=== PATIENT | male | born 1975 | race Caucasian/White ===

== ENCOUNTER 2019-01-24 04:43 | Emergency (ER) | payer OTHER ==
[~2019-01-24] VITALS: Ht 177.8 cm; Wt 88.5 kg
--- OUTSIDE RECORDS SUMMARY | 2019-01-24 04:52 | XMS REPORT ---
Author Author NHUNG BRICENO Organization [facility] Address [address] [place] [address] Care Team Providers Care Ordnance Technician Name Role Phone NHUNG BRICENO Unavailable PROBLEMS Type Condition ICD9-CM Code [id number] Code Onset Dates Condition Status SNOMED Code Problem Paresthesia of hand, bilateral R20.2 Active 795605201 Problem Paresthesia of both hands R20.2 Active 062007806 Problem Paresthesia of skin R20.2 Active 73713244 ALLERGIES No Information ENCOUNTERS Encounter Location Date Diagnosis [facility] [id number] [place] [phone] May, [facility] [id number] [place] [phone] Apr, [facility] [id number] [place] [phone] Apr, Pain in left wrist M25.532 ; Pain in right wrist M25.531 ; Pain in left elbow M25.522 ; Pain in right elbow M25.521 and Paresthesia of hand, bilateral R20.2 [facility] [id number] [place] [phone] Apr, Paresthesia of both hands R20.2 [facility] [id number] [place] [phone] Mar, Paresthesia of skin R20.2 and Anesthesia of skin R20.0 IMMUNIZATIONS No Known Immunizations SOCIAL HISTORY Never Assessed REASON FOR VISIT Requests return call PLAN OF CARE VITAL SIGNS MEDICATIONS Unknown Medications RESULTS No Results PROCEDURES No Known procedures INSTRUCTIONS MEDICATIONS ADMINISTERED No Known Medications MEDICAL (GENERAL) HISTORY Type Description Date Medical History HTN Medical History Cholesterol Surgical History lymp node biopsy in neck...benign...cat scratch fever 1998
--- OUTSIDE RECORDS SUMMARY | 2019-01-24 04:52 | XMS REPORT ---
Author Author JUAN HORVATH Organization [facility] Address [address] [place] [address] Care Team Providers Care Ballet [employer] Member Name Role Phone JUAN HORVATH Unavailable PROBLEMS Type Condition ICD9-CM Code WHS44-VJ Code Onset Dates Condition Status SNOMED Code Problem Paresthesia of hand, bilateral R20.2 Active 940190534 Problem Paresthesia of both hands R20.2 Active 880745099 Problem Paresthesia of skin R20.2 Active 94953616 ALLERGIES Substance Reaction Event Type Date Status Codeine Sulfate vomiting Drug Allergy Apr, Active ENCOUNTERS Encounter Location Date Diagnosis [facility] [address] [phone] May, [facility] [address] [phone] Apr, [facility] [address] [phone] Apr, Pain in left wrist M25.532 ; Pain in right wrist M25.531 ; Pain in left elbow M25.522 ; Pain in right elbow M25.521 and Paresthesia of hand, bilateral R20.2 [facility] [address] [phone] Apr, Paresthesia of both hands R20.2 [facility] [address] [address] Mar, Paresthesia of skin R20.2 and Anesthesia of skin R20.0 IMMUNIZATIONS No Known Immunizations SOCIAL HISTORY Never Assessed REASON FOR VISIT Establish Care-twooden RMA, pt. states that both of his arms are going numb sta beckie at the tip of his fingers anf radiates upwards. stated two weeks ago PLAN OF CARE Activity Details Follow Up prn Reason: VITAL SIGNS Height 70 in 2018-04-18 Weight 175.4 lbs 2018-04-18 Temperature 97.1 degrees Fahrenheit 2018-04-18 Heart Rate 70 bpm 2018-04-18 Respiratory Rate 18 2018-04-18 Oximetry on room air:94 % 2018-04-18 BMI 25.16 kg/m2 2018-04-18 Blood pressure systolic 118 mmHg 2018-04-18 Blood pressure diastolic 70 mmHg 2018-04-18 MEDICATIONS Medication Instructions Dosage Frequency Start Date End Date Duration Status Atorvastatin Calcium 10 MG Orally Once a day 1 tablet 24h Active Amlodipine Besylate 10 MG Orally Once a day 1 tablet 24h Active Fenofibrate 50 MG Orally Once a day 1 capsule with food 24h Active RESULTS No Results PROCEDURES No Known procedures INSTRUCTIONS MEDICATIONS ADMINISTERED No Known Medications MEDICAL (GENERAL) HISTORY Type Description Date Medical History HTN Medical History Cholesterol Surgical History lymp node biopsy in neck...benign...cat scratch fever 1998
--- OUTSIDE RECORDS SUMMARY | 2019-01-24 04:52 | XMS REPORT ---
Author Author HEATHER BAKER [facility] Address [address] [place] [address] Care Team Providers Care Foundry Tender Name Role Phone HEATHER BAKER Unavailable PROBLEMS Type Condition ICD9-CM Code OZJ16-GF Code Onset Dates Condition Status SNOMED Code Problem Paresthesia of hand, bilateral R20.2 Active 508361587 Problem Paresthesia of both hands R20.2 Active 645368497 Problem Paresthesia of skin R20.2 Active 74676326 ALLERGIES Substance Reaction Event Type Date Status Codeine Sulfate vomiting Drug Allergy Mar, Active ENCOUNTERS Encounter Location Date Diagnosis [facility] [address] [phone] May, [facility] [id number] [place] [phone] Apr, [facility] [address] [address] 19 Apr, 2018 Pain in left wrist M25.532 ; Pain in right wrist M25.531 ; Pain in left elbow M25.522 ; Pain in right elbow M25.521 and Paresthesia of hand, bilateral R20.2 [facility] [id number] [place] [phone] Apr, Paresthesia of both hands R20.2 [facility] [id number] [place] [phone] Mar, Paresthesia of skin R20.2 and Anesthesia of skin R20.0 IMMUNIZATIONS No Known Immunizations SOCIAL HISTORY Never Assessed REASON FOR VISIT numbness in hands and arms bilaterally. usually happens at noc. denies any injur y to them. been going on for 3 weeks now. lo PLAN OF CARE Activity Details Follow Up 04/11 w/ Torey Baker Reason:hand numbness and tingling VITAL SIGNS Height 70 in 2018-04-07 Weight 178.0 lbs 2018-04-07 Temperature 98.2 degrees Fahrenheit 2018-04-07 Heart Rate 72 bpm 2018-04-07 Respiratory Rate 20 2018-04-07 BMI 25.54 kg/m2 2018-04-07 Blood pressure systolic 118 mmHg 2018-04-07 Blood pressure diastolic 70 mmHg 2018-04-07 MEDICATIONS Medication Instructions Dosage Frequency Start Date End Date Duration Status Amlodipine Besylate 10 MG Orally Once a day 1 tablet 24h Active Atorvastatin Calcium 10 MG Orally Once a [...]
--- NOTE | 2019-01-24 05:43 | ED Upper Extremity ---
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 Nursing Sepsis Screen: No Definite Risk Source: patient (AZALIA BRUNNER ) History of Present Illness Date Seen by Provider: Jan 24, 2019 Time Seen by Provider: 05:33 Initial Comments PT ARRIVES VIA POV FROM HOME STATES HE INJURED HIS LEFT THUMB TODAY AROUND 0200 STATES HE GOT HOME FROM WORK AT 0130, AND SMASHED HIS LEFT THUMB BETWEEN DOOR JAMB AND A LARGE BOX, HAS A LACERATION TO PAD OF THUMB C/O CONTINUED PAIN AND BLEEDING FROM THE WOUND NO PARESTHESIAS OR MOTOR DEFICITS LAST TETANUS IS UNKNOWN (AZALIA BRUNNER DO) Allergies and Home Medications Allergies Coded Allergies: Penicillins (Verified Allergy, Unknown, 01/24/19) Patient Home Medication List Home Medication List Reviewed: Yes (MALIA SCHAEFFER MD) Review of Systems Constitutional: no symptoms reported Musculoskeletal: see HPI Skin: see HPI Psychiatric/Neurological: No Symptoms Reported (AZALIA BRUNNER DO) Past Fvysgyh-Wqmjgo-Bkluzh Hx Patient Social History Alcohol Use: Denies Use Recreational Drug Use: No Smoking Status: Never a Smoker 2nd Hand Smoke Exposure: No Recent Foreign Travel: No Contact w/Someone Who Travel: No Recent Infectious Disease Expo: No Recent Hopitalizations: No (AZALIA BRUNNER DO) Immunizations Up To Date Tetanus Booster (TDap): Unknown (AZALIA BRUNNER DO) Past Medical History Surgeries: No Respiratory: No Cardiac: Yes Hypertension Neurological: No Genitourinary: No Gastrointestinal: No Musculoskeletal: No Endocrine: No HEENT: No Cancer: No Psychosocial: No Integumentary: No Blood Disorders: No (AZALIA BRUNNER DO) Physical Exam Vital Signs Vital Signs - First Documented 01/24/19 05:05 Temp 98.3 Pulse 85 Resp 18 B/P (MAP) 139/82 (101) Pulse Ox 95 O2 Delivery Room Air (MALIA SCHAEFFER MD) Vital Signs Capillary Refill : Less Than 3 Seconds (AZALIA BRUNNER DO) Height, Weight, BMI Height: 5'10.00" Weight: 195lbs. oz. 88.394703px; BMI Method:Stated General Appearance: WD/WN, no apparent distress, other (VEYR ANXIOUS, VERY TREMULOUOS; FILTHY, UNKEMPT) HEENT: other (POOR DENTITION) Hand: Left (THUMB WITH LARGE FLAP TYPE LACERATION, VERY IRREGULAR. DISTAL MOTOR/SENSORY/VASCULAR INTACT. ) Neurologic/Psychiatric: no motor/sensory deficits, alert, oriented x 3 Skin: normal color, warm/dry, other (LACERATION ABOVE) (AZALIA BRUNNER DO) Procedures/Interventions Wound Location: Upper Extremities Other Wound Location Left thumb Wound Length (cm): 3 Wound's Depth, Shape: irregular, flap, contused tissue Wound Explored: contaminated Irrigated w/ Saline (ccs): 100 Betadine Prep?: Yes Anesthesia: 1% Lidocaine Volume Anesthetic (ccs): 4 Wound Debrided: minimal Suture: Prolene Suture Size: 4-0 Number of Sutures: 6 Layer Closure?: 1 Number Deep Layer Sutures: 0 Sterile Dressing Applied?: Yes Progress Digital block to the left thumb with excellent anesthesia. Sutured with simple sutures. Tolerated repair well with no complications. Covered with antibiotic ointment and dressing. Aluminum foam splint applied. (MALIA SCHAEFFER MD) Progress/Results/Core Measures Results/Orders My Orders Orders - MALIA SCHAEFFER MD Lidocaine 2% Injection 20 Ml (Xylocaine (01/24/19 06:01) Lidocaine 1% Inj 20 Ml (Xylocaine 1% Inj (01/24/19 06:04) (MALIA SCHAEFFER MD) Medications Given in ED Current Medications Medications Dose Ordered Sig/Byron Route Start Time Stop Time Status Last Admin Dose Admin Diphtheria/ Tetanus/Acell Pertussis 0.5 ml ONCE ONCE IM 01/24/19 05:45 01/24/19 05:46 DC 01/24/19 05:46 0.5 ML Lidocaine HCl 20 ml STK-MED ONCE .ROUTE 01/24/19 06:04 01/24/19 06:10 DC 01/24/19 06:32 20 ML (MALIA SCHAEFFER MD) Vital Signs/I&O 01/24/19 05:05 Temp 98.3 Pulse 85 Resp 18 B/P (MAP) 139/82 (101) Pulse Ox 95 O2 Delivery Room Air (MALIA SCHAEFFER MD) Blood Pressure Mean: 101 Progress Progress Note : Progress Note I assumed care at the patient from Dr. Brunner at 0600 pending x-ray and patient needing laceration repair of left thumb. 0700: X-ray complete. Question proximal portion of distal phalanx fracture that is nondisplaced. 0715: Suture repair complete. Splint placed. X-ray read as negative but we will continue splint to protect wound as well. Discharged home with return precautions. Patient verbalize understanding instructions and agreement with plan. Unable to send prescription electronic. Cephalexin 500 mg by mouth 4 times a day written prescription given for 5 days. (MALIA SCHAEFFER MD) Diagnostic Imaging Diagonstic Imaging: Xray Plain Films/CT/US/NM/MRI: hand Comments [facility] [place] NAME: FERNIE TORRES [facility] REC#: [id number] PT STATUS: REG ER : 1975 PHYSICIAN: AZALIA BRUNNER DO ADMIT DATE: 01/24/19/ER Draft Date of Exam:01/24/19 FINGER(S) INDICATION: Laceration to left thumb. FINDINGS: 3 views. There are no fractures or dislocation. Articulating surfaces are smooth and appear normal. No radiopaque foreign bodies. IMPRESSION: Negative left thumb. Dictated on workstation # [id number] Dict: 01/24/19 0707 Trans: 01/24/19 0709 [id number] Interpreted by: WILLIAM TRENT MD Electronically signed by: (MALIA SCHAEFFER MD) Departure Impression Primary Impression: Laceration of left thumb without damage to nail Qualified Codes: S61.012A - Laceration without foreign body of left thumb without damage to nail, initial encounter Disposition: 01 HOME, SELF-CARE Condition: Improved Departure-Patient Inst. Decision time for Depature: 07:19 (MALIA SCHAEFFER MD) Referrals: NO,LOCAL PHYSICIAN (PCP/Family) Primary Care Physician Patient Instructions: Laceration Repair With Stitches (DC) Add. Discharge Instructions: All discharge instructions reviewed with patient and/or family. Voiced understanding. You may take ibuprofen 800 mg every 8 hours as needed for pain. You may also take Tylenol/acetaminophen 1000 mg every 8 hours as needed for pain. Keep wound clean and dry. Protect wound from getting dirty while at work by covering with glove or other form of protection. Use splint at all times except for when washing hands for at least the next week to 10 days. Sutures out in 10 days. K eep dressing in place for the next 2 days and then you may remove period it is okay to wash hands twice daily and as needed. Cover wound with antibiotic ointment and Band-Aid and continue to use splint as discussed above. Return for worse pain, swelling, red streaks up the hand, foul-smelling drainage or other concerns as needed. Take medications as directed. AZALIA BRUNNER DO Jan 24, 2019 05:42 MALIA SCHAEFFER MD Jan 24, 2019 07:20
[2019-01-24] MEDS ORDERED: TETANUS,DIPTH,PERTUSS P/F (BOOSTRIX) 0.5 ML VIAL IM ONE (05:45)
[2019-01-24] MEDS ORDERED: LIDOCAINE 2% 20 ML (XYLOCAINE) VIAL INJ STA (06:01)
[2019-01-24] MEDS ORDERED: LIDOCAINE 1% INJ 20 ML 20 ML VIAL ONE (06:04)
--- NOTE | 2019-01-24 07:00 | NUR ---
ASSUMED CARE OF PT.
--- NOTE | 2019-01-24 07:09 | Diagnostic Imaging Report ---
INDICATION: Laceration to left thumb. FINDINGS: 3 views. There are no fractures or dislocation. Articulating surfaces are smooth and appear normal. No radiopaque foreign bodies. IMPRESSION: Negative left thumb. Dictated by: Dictated on workstation # [id number]
--- NOTE | 2019-01-24 07:10 | NUR ---
IN ROOM SUTURING AT THIS TIME.
[2019-01-24 07:45] VITALS: BP 139/82
[2019-01-24] MEDS ORDERED: CEPH500C PO (09:08)
== END 2019-01-24 07:45 | disposition home or self-care (01) ==
LOC: EDUNIT# 04:43 → ER 04:48
DX: S61.012A Laceration without foreign body of left thumb without damage to nail, initial encounter (principal); I10 Essential (primary) hypertension; Z88.0 Allergy status to penicillin; W23.1XXA Caught, crushed, jammed, or pinched between stationary objects, initial encounter
CPT/HCPCS: 12001; 29130; 73140; 90471; 90715

== ENCOUNTER 2019-02-05 01:26 | Emergency (ER) | payer OTHER ==
[~2019-02-05] VITALS: Ht 177.8 cm; Wt 86.2 kg
[~2019-02-05 01:26] MED LIST: CEPH500C PO
--- NOTE | 2019-02-05 02:00 | NUR ---
Wound bed cleaned with ns and chlorhexidine solution. x4 sutures removed. Pt states, "I think there was 6 sutures, but I think a couple ripped out." No redness, swelling, or purulent drainage noted to wound bed or surrounding tissue.
[2019-02-05 02:15] VITALS: BP 135/86
== END 2019-02-05 02:15 | disposition home or self-care (01) ==
LOC: EDUNIT# 01:26 → ER 01:29
DX: S61.012D Laceration without foreign body of left thumb without damage to nail, subsequent encounter (principal); W22.8XXD Striking against or struck by other objects, subsequent encounter

== ENCOUNTER 2019-02-12 11:56 | Emergency (ER) | payer OTHER ==
[~2019-02-12] VITALS: Ht 177.8 cm; Wt 86.2 kg
--- NOTE | 2019-02-12 13:02 | NUR ---
pt here by self. pt alert gcs 15. pt stepped on nail last week. relates last tetanus 2-3 weeks ago for hand laceration. pt been c/o hardness and pain to sole of right foot. pain rating 5. positive pulse and sensation right foot. pt has puncture wound sole of right foot proximal to toes. area is hard allway around puncure site and all area proximal to all toes. ? hard callus vs fluid filled vs yellow bruising. . some pinkish red around the wound radiating up medial aspect of right foot. no redness noted dorsally right foot. done gricelda pt at 1308.
--- NOTE | 2019-02-12 13:43 | ED Lower Extremity ---
General Chief Complaint: Lower Extremity Stated Complaint: R FOOT SWELLING Nursing Triage Note: right foot injury Nursing Sepsis Screen: No Definite Risk History of Present Illness Date Seen by Provider: Feb 12, 2019 Time Seen by Provider: 13:25 Initial Comments 43-year-old male presents with right foot pain. He states that he had callus on the plantar surface of his right foot for approximately one week. He did step on a nail but didn't think it is where the current wound is. Over the last several days had increased swelling and pain in this area. He denies any drainage. He put some callus cream on it with no improvement. Tetanus vaccine approximately 2 weeks ago, when he had a laceration to his right hand. Pain/Injury Location: right foot Method of Injury: incised (stepped on a nail approximately 1-2 wees ago. ) Allergies and Home Medications Allergies Coded Allergies: Penicillins (Verified Allergy, Unknown, 01/24/19) Home Medications Cephalexin 500 Mg Capsule, 500 MG PO QID Prescribed by: MALIA SCHAEFFER on 01/24/19 0908 Sulfamethoxazole/Trimethoprim 1 Each Tablet, 1 EACH PO BID Prescribed by: ISAAC BORRERO on 02/12/19 1458 Patient Home Medication List Home Medication List Reviewed: Yes Review of Systems Constitutional: no symptoms reported, see HPI Skin: see HPI, change in color (right foot, plantar surface), other (small abscess to the plantar surface right foot) All Other Systems Reviewed Negative Unless Noted: Yes Past Zrhyjdd-Qfzeja-Ztptei Hx Past Med/Social Hx: Reviewed Nursing Past Med/Soc Hx Patient Social History Alcohol Use: Occasionally Uses Recreational Drug Use: No Smoking Status: Never a Smoker 2nd Hand Smoke Exposure: No Recent Foreign Travel: No Contact w/Someone Who Travel: No Recent Infectious Disease Expo: No Recent Hopitalizations: No Physical Abuse: No Sexual Abuse: No Immunizations Up To Date Tetanus Booster (TDap): Less than 5yrs Past Medical History Surgeries: No Respiratory: No Cardiac: Yes Hypertension Neurological: No Genitourinary: No Gastrointestinal: No Musculoskeletal: No Endocrine: No HEENT: No Cancer: No Psychosocial: No Integumentary: No Blood Disorders: No Physical Exam Vital Signs Vital Signs - First Documented 02/12/19 13:02 Temp 99.0 Pulse 64 Resp 16 B/P (MAP) 152/96 (114) Pulse Ox 98 O2 Delivery Room Air Capillary Refill : Less Than 3 Seconds Height, Weight, BMI Height: 5'10.00" Weight: 190lbs. oz. 86.474235pb; 21.09 BMI Method:Stated General Appearance: WD/WN, no apparent distress Cardiovascular: normal peripheral pulses, regular rate, rhythm Respiratory: chest non-tender, lungs clear, normal breath sounds Gastrointestinal: normal bowel sounds, non tender, soft Feet: right foot normal range of motion, right foot ecchymosis, right foot infection (trace fluctuance no induration), right foot pain, right foot soft tissue tenderness (plantar surface, over 30 to fourth metatarsal head), right foot swelling Neurologic/Tendon: normal sensation, normal motor functions, normal tendon functions Neurologic/Psychiatric: no motor/sensory deficits, alert, normal mood/affect, oriented x 3 Procedures/Interventions I&D : Site: right foot, plantar surface Blade Size: 11 I & D Procedure: betadine prep Progress In Betadine and infiltrated with 4 mL's of 1% lidocaine, a small puncture incision was made with 11 blade. Trace amount of purulent discharge was expressed. The wound was copiously irrigated with 500 ML's of sterile saline. Triple antibiotic ointment and bulky dressing was applied. The patient tolerated the procedure well. Suture Size: 4-0 Progress/Results/Core Measures Results/Orders Lab Results Laboratory Tests Test 02/12/19 13:44 Range/Units White Blood Count 13.1 H 4.3-11.0 10^3/uL Red Blood Count 5.06 4.35-5.85 10^6/uL Hemoglobin 14.1 13.3-17.7 G/DL Hematocrit 43 40-54 % Mean Corpuscular Volume 85 80-99 FL Mean Corpuscular Hemoglobin 28 25-34 PG Mean Corpuscular Hemoglobin Concent 33 32-36 G/DL Red Cell Distribution Width 13.1 10.0-14.5 % Platelet Count 302 130-400 10^3/uL Mean Platelet Volume 10.1 7.4-10.4 FL Neutrophils (%) (Auto) 78 H 42-75 % Lymphocytes (%) (Auto) 11 L 12-44 % Monocytes (%) (Auto) 10 0-12 % Eosinophils (%) (Auto) 1 0-10 % Basophils (%) (Auto) 0 0-10 % Neutrophils # (Auto) 10.2 H 1.8-7.8 X 10^3 Lymphocytes # (Auto) 1.5 1.0-4.0 X 10^3 Monocytes # (Auto) 1.2 H 0.0-1.0 X 10^3 Eosinophils # (Auto) 0.1 0.0-0.3 10^3/uL Basophils # (Auto) 0.0 0.0-0.1 10^3/uL Sodium Level 138 135-145 MMOL/L Potassium Level 4.0 3.6-5.0 MMOL/L Chloride Level 104 98-107 MMOL/L Carbon Dioxide Level 27 21-32 MMOL/L Anion Gap 7 5-14 MMOL/L Blood Urea Nitrogen 12 7-18 MG/DL Creatinine 0.91 0.60-1.30 MG/DL Estimat Glomerular Filtration Rate > 60 BUN/Creatinine Ratio 13 Glucose Level 87 70-105 MG/DL Calcium Level 9.0 8.5-10.1 MG/DL Corrected Calcium 9.2 8.5-10.1 MG/DL Total Bilirubin 0.5 0.1-1.0 MG/DL Aspartate Amino Transf (AST/SGOT) 15 5-34 U/L Alanine Aminotransferase (ALT/SGPT) 16 0-55 U/L Alkaline Phosphatase 66 40-136 U/L C-Reactive Protein High Sensitivity 2.86 H 0.00-0.50 MG/DL Total Protein 6.8 6.4-8.2 GM/DL Albumin 3.8 3.2-4.5 GM/DL My Orders Orders - ISAAC BORRERO Cbc With Automated Diff (02/12/19 13:22) Comprehensive Metabolic Panel (02/12/19 13:22) Hs C Reactive Protein (02/12/19 13:22) Foot, Right, 3 View (02/12/19 13:22) Lidocaine 1% Inj 20 Ml (Xylocaine 1% Inj (02/12/19 14:30) Medications Given in ED Current Medications Medications Dose Ordered Sig/Byron Route Start Time Stop Time Status Last Admin Dose Admin Lidocaine HCl 20 ml ONCE ONCE INJ 02/12/19 14:30 02/12/19 14:31 DC 02/12/19 14:38 20 ML Vital Signs/I&O 02/12/19 02/12/19 13:02 15:10 Temp 99.0 99.2 Pulse 64 56 Resp 16 20 B/P (MAP) 152/96 (114) 144/89 (107) Pulse Ox 98 98 O2 Delivery Room Air Room Air Blood Pressure Mean: 114 Diagnostic Imaging Diagonstic Imaging: Xray Plain Films/CT/US/NM/MRI: other (right foot) Comments NAME: FERNIE TORRES MED REC#: [id number] PT STATUS: REG ER : 1975 PHYSICIAN: ISAAC BORRERO ADMIT DATE: 02/12/19/ER Draft Date of Exam:02/12/19 FOOT, RIGHT, 3 VIEW Indication: Stepped on a nail with swelling to the midfoot. Time of exam: 1:36 PM Three views of the right foot were obtained. There appears to be some generalized soft tissue swelling. Metatarsals are intact. Phalanges are intact. Midfoot and hindfoot are unremarkable. No definite bony destructive changes or fractures are seen. No soft tissue gas or radiopaque foreign body is seen. Impression: Soft tissue swelling. No other significant abnormality is seen. Dictated on workstation # [id number] Dict: 02/12/19 1400 Trans: 02/12/19 1404 CV [id number] Interpreted by: TIM KHANAN MD Electronically signed by: Reviewed: Reviewed by Me Departure Impression Primary Impression: Abscess of right foot Disposition: 01 HOME, SELF-CARE Condition: Improved Departure-Patient Inst. Decision time for Depature: 14:50 Referrals: NO,LOCAL PHYSICIAN (PCP/Family) Primary Care Physician Patient Instructions: Abscess Incision and Drainage (DC) Add. Discharge Instructions: Keep right ear clean and dry, clean wound with peroxide and apply triple antibiotic ointment 3 times a day. Take antibiotics as prescribed. Follow-up for wound care at [facility]. You may alternate between Tylenol 650 mg and ibuprofen 600 mg every 4 hours for pain or fever. Return to emergency department for new, urgent health care needs. All discharge instructions reviewed with patient and/or family. Voiced understanding. Scripts Sulfamethoxazole/Trimethoprim (Sulfamethoxazole-Tmp Ds Tablet) 1 Each Tablet 1 EACH PO BID, #20 TAB 0 Refills Prov: ISAAC BORRERO 02/12/19 ISAAC BORRERO Feb 12, 2019 13:43
--- NOTE | 2019-02-12 13:44 | NUR ---
saúl estrada for labs by me to lab by me
[2019-02-12 13:53] LABS: BASOPHILS % (AUTO) 0 % (0-10); EOSINOPHILS # (AUTO) 0.1 10^3/uL (0.0-0.3); EOSINOPHILS % (AUTO) 1 % (0-10); HEMATOCRIT 43 % (40-54); HEMOGLOBIN 14.1 G/DL (13.3-17.7); LYMPHOCYTES # (AUTO) 1.5 X 10^3 (1.0-4.0); LYMPHOCYTES % (AUTO) 11 % (12-44); MEAN CORPUSCULAR HEMOGLOBIN 28 PG (25-34); MEAN CORPUSCULAR HGB CONC 33 G/DL (32-36); MEAN CORPUSCULAR VOLUME 85 FL (80-99); MEAN PLATELET VOLUME 10.1 FL (7.4-10.4); MONOCYTES # (AUTO) 1.2 X 10^3 (0.0-1.0); MONOCYTES % (AUTO) 10 % (0-12); NEUTROPHILS # (AUTO) 10.2 X 10^3 (1.8-7.8); NEUTROPHILS % (AUTO) 78 % (42-75); PLATELET COUNT 302 10^3/uL (130-400); RED CELL DISTRIBUTION WIDTH 13.1 % (10.0-14.5); WHITE BLOOD COUNT 13.1 10^3/uL (4.3-11.0)
--- NOTE | 2019-02-12 14:05 | Diagnostic Imaging Report ---
Indication: Stepped on a nail with swelling to the midfoot. Time of exam: 1:36 PM Three views of the right foot were obtained. There appears to be some generalized soft tissue swelling. Metatarsals are intact. Phalanges are intact. Midfoot and hindfoot are unremarkable. No definite bony destructive changes or fractures are seen. No soft tissue gas or radiopaque foreign body is seen. Impression: Soft tissue swelling. No other significant abnormality is seen. Dictated by: Dictated on workstation # [id number]
[2019-02-12 14:09] LABS: ALANINE AMINOTRANSFERASE 16 U/L (0-55); ALBUMIN 3.8 GM/DL (3.2-4.5); ALKALINE PHOSPHATASE 66 U/L (40-136); BILIRUBIN,TOTAL 0.5 MG/DL (0.1-1.0); BUN/CREATININE RATIO 13; CARBON DIOXIDE 27 MMOL/L (21-32); CHLORIDE 104 MMOL/L (98-107); CREATININE SERUM 0.91 MG/DL (0.60-1.30); GFR ESTIMATED > 60; GLUCOSE 87 MG/DL (70-105); SODIUM 138 MMOL/L (135-145); TOTAL PROTEIN 6.8 GM/DL (6.4-8.2)
[2019-02-12] MEDS ORDERED: LIDOCAINE 1% INJ 20 ML 20 ML VIAL INJ ONE (14:30)
--- NOTE | 2019-02-12 14:38 | NUR ---
debora garg dr for i/d
--- NOTE | 2019-02-12 14:51 | NUR ---
cx right foot to lab byme obtained by dr aquino still needs to order it.
[2019-02-12] MEDS ORDERED: SULF-222 PO (14:58)
[2019-02-12 15:10] VITALS: BP 144/89
--- NOTE | 2019-02-12 15:10 | NUR ---
l papers. scripts faxed. pt left ambulatory by self. d/c instructions to pt. told to read al pt knows f/u. i went over the handtyped by dr information on the chart. pt had no iv. dr must have placed a dressing right foot and pt has erin bandage in place. pt request stronger pain meds at d/c. dr declined it. i went over sighns of infection with the pt.
== END 2019-02-12 15:07 | disposition home or self-care (01) ==
LOC: EDUNIT# 11:56 → ER 11:57
DX: L02.611 Cutaneous abscess of right foot (principal); I10 Essential (primary) hypertension; Z88.0 Allergy status to penicillin
CPT/HCPCS: 10060; 36415; 73630; 80053; 85025; 86141; 87070; 87077; 87186; 87205

== ENCOUNTER 2019-02-16 14:21 | Inpatient (IN) | payer OTHER ==
[~2019-02-16] VITALS: Ht 177.8 cm; Wt 84.5 kg
[~2019-02-16 14:21] MED LIST changes: +SULF-222 PO
--- NOTE | 2019-02-16 14:57 | ED Integumentary General ---
General Chief Complaint: Skin/Wound Problems Stated Complaint: FOOT PAIN;ABSCESS Source: patient Exam Limitations: no limitations History of Present Illness Date Seen by Provider: Feb 16, 2019 Time Seen by Provider: 14:54 Initial Comments To ER per private vehicle from home with reports of right foot pain secondary to an abscess. He was seen here on February 12, had this lanced, culture was collected showing MRSA. He was put on an Bactrim. He denies fevers or chills but has trouble walking due to the pain and states that the redness and swelling has gotten quite a bit worse despite the antibiotics. He does state that about 4 days prior to this abscess development he stepped on a nail at work at [employer]. He is not diabetic and has no other medical conditions that he is aware of. Denies drug use alcohol use or smoking. Timing/Duration: just prior to arrival Severity: moderate Allergies and Home Medications Allergies Coded Allergies: codeine (Verified Allergy, Unknown, 02/16/19) Home Medications Cephalexin 500 Mg Capsule, 500 MG PO QID Prescribed by: MALIA SCHAEFFER on 01/24/19 0908 Sulfamethoxazole/Trimethoprim 1 Each Tablet, 1 EACH PO BID Prescribed by: ISAAC BORRERO on 02/12/19 1458 Patient Home Medication List Home Medication List Reviewed: Yes Review of Systems Review of Systems Constitutional: see HPI EENTM: see HPI Respiratory: no symptoms reported Cardiovascular: no symptoms reported Genitourinary: no symptoms reported Musculoskeletal: see HPI Skin: see HPI Psychiatric/Neurological: No Symptoms Reported Endocrine: No Symptoms Reported Hematologic/Lymphatic: No Symptoms Reported Past Glgdiph-Wkttiu-Uuhgiv Hx Patient Social History 2nd Hand Smoke Exposure: No Recent Hopitalizations: No Immunizations Up To Date Tetanus Booster (TDap): Less than 5yrs Past Medical History Surgeries: No Respiratory: No Cardiac: Yes Hypertension Neurological: No Genitourinary: No Gastrointestinal: No Musculoskeletal: No Endocrine: No HEENT: No Cancer: No Psychosocial: No Integumentary: No Blood Disorders: No Physical Exam Vital Signs Vital Signs - First Documented 02/16/19 14:43 Temp 100.1 Pulse 100 Resp 19 B/P (MAP) 129/115 (120) Pulse Ox 96 O2 Delivery Room Air Capillary Refill : General Appearance: WD/WN, no apparent distress HEENT: PERRL/EOMI, normal ENT inspection Respiratory: no respiratory distress, no accessory muscle use Neurologic/Psychiatric: alert, normal mood/affect, oriented x 3 Skin: normal color, warm/dry Skin Problem Character: abscess, erythema, other (to the plantar surface of the right foot there is a large bulla measuring about 5 cm that has partially ruptured and lifted the skin off of the underlying subcutaneous tissues. There is drainage of purulent material from this. There is circumferential erythema and swelling around the mid foot. He is able to wiggle his toes, has sensation of each toe and capillary refill of each toe is brisk.) Procedures/Interventions Suture Size: 4-0 Progress/Results/Core Measures Results/Orders Lab Results Laboratory Tests Test 02/16/19 14:42 02/16/19 14:50 Range/Units Erythrocyte Sedimentation Rate 27 H 0-15 MM/HR Prothrombin Time 14.3 12.2-14.7 SEC INR Comment 1.1 0.8-1.4 Sodium Level 140 135-145 MMOL/L Potassium Level 4.2 3.6-5.0 MMOL/L Chloride Level 103 98-107 MMOL/L Carbon Dioxide Level 27 21-32 MMOL/L Anion Gap 10 5-14 MMOL/L Blood Urea Nitrogen 14 7-18 MG/DL Creatinine 1.34 H 0.60-1.30 MG/DL Estimat Glomerular Filtration Rate 58 BUN/Creatinine Ratio 10 Glucose Level 78 70-105 MG/DL Lactic Acid Level 1.75 0.50-2.00 MMOL/L Calcium Level 9.9 8.5-10.1 MG/DL Corrected Calcium 9.9 8.5-10.1 MG/DL Magnesium Level 2.1 1.8-2.4 MG/DL Total Bilirubin 0.5 0.1-1.0 MG/DL Aspartate Amino Transf (AST/SGOT) 17 5-34 U/L Alanine Aminotransferase (ALT/SGPT) 18 0-55 U/L Alkaline Phosphatase 83 40-136 U/L Total Protein 7.8 6.4-8.2 GM/DL Albumin 4.0 3.2-4.5 GM/DL White Blood Count 17.0 H 4.3-11.0 10^3/uL Red Blood Count 4.95 4.35-5.85 10^6/uL Hemoglobin 13.8 13.3-17.7 G/DL Hematocrit 42 40-54 % Mean Corpuscular Volume 85 80-99 FL Mean Corpuscular Hemoglobin 28 25-34 PG Mean Corpuscular Hemoglobin Concent 33 32-36 G/DL Red Cell Distribution Width 13.1 10.0-14.5 % Platelet Count 343 130-400 10^3/uL Mean Platelet Volume 10.4 7.4-10.4 FL Neutrophils (%) (Auto) 83 H 42-75 % Lymphocytes (%) (Auto) 8 L 12-44 % Monocytes (%) (Auto) 7 0-12 % Eosinophils (%) (Auto) 1 0-10 % Basophils (%) (Auto) 0 0-10 % Neutrophils # (Auto) 14.1 H 1.8-7.8 X 10^3 Lymphocytes # (Auto) 1.4 1.0-4.0 X 10^3 Monocytes # (Auto) 1.3 H 0.0-1.0 X 10^3 Eosinophils # (Auto) 0.2 0.0-0.3 10^3/uL Basophils # (Auto) 0.0 0.0-0.1 10^3/uL Neutrophils % (Manual) 82 % Lymphocytes % (Manual) 9 % Monocytes % (Manual) 6 % Eosinophils % (Manual) 1 % Basophils % (Manual) 0 % Band Neutrophils 2 % Blood Morphology Comment NORMAL My Orders Orders - MARINA JACOBO APRN Blood Culture (02/16/19 14:50) Comprehensive Metabolic Panel (02/16/19 14:50) Ua Culture If Indicated (02/16/19 14:50) Drug Screen Stat (Urine) (02/16/19 14:50) Wound Culture (02/16/19 14:50) Foot, Right, 3 View (02/16/19 14:50) Erythrocyte Sedimentation Rate (02/16/19 14:50) Ed Iv/Invasive Line Start (02/16/19 14:50) Magnesium (02/16/19 14:50) Protime With Inr (02/16/19 14:50) Lactic Acid Analyzer (02/16/19 14:50) Fentanyl Injection (Sublimaze Injection (02/16/19 15:00) Lactated Ringers (Lr 1000 Ml Iv Solution (02/16/19 15:00) Lorazepam Injection (Ativan Injection) (02/16/19 15:00) Piperacillin/Tazobactam (Bulk) (Zosyn In (02/16/19 15:15) Vancomycin Injection (Vancomycin Injecti (02/16/19 15:15) Vancomycin Injection (Vancomycin Injecti (02/16/19 15:15) Medications Given in ED Current Medications Medications Dose Ordered Sig/Byron Route Start Time Stop Time Status Last Admin Dose Admin Fentanyl Citrate 50 mcg ONCE ONCE IVP 02/16/19 15:00 02/16/19 15:01 DC 02/16/19 15:09 50 MCG Lorazepam 0.5 mg ONCE PRN IVP 02/16/19 15:00 02/16/19 15:12 0.5 MG Vital Signs/I&O 02/16/19 14:43 Temp 100.1 Pulse 100 Resp 19 B/P (MAP) 129/115 (120) Pulse Ox 96 O2 Delivery Room Air Diagnostic Imaging Diagonstic Imaging: Xray Comments NAME: FERNIE TORRES MED REC#: [id number] PT STATUS: REG ER : 1975 PHYSICIAN: MARINA JACOBO APRN ADMIT DATE: 02/16/19/ER Draft Date of Exam:02/16/19 FOOT, RIGHT, 3 VIEW INDICATION: Swelling and redness to the right foot as well as fever. TIME OF EXAM: 03:28 p.m. FINDINGS: Three views of the right foot were obtained. There is dorsal soft tissue swelling. The metatarsals are intact. Phalanges are intact. Mid foot and hind foot are unremarkable. No fractures are seen. IMPRESSION: Soft tissue swelling. No acute bony abnormality is detected. Dictated on workstation # [id number] Dict: 02/16/19 1540 Trans: 02/16/19 1546 [id number] Interpreted by: TIM KHANNA MD Electronically signed by: Departure Communication (Admissions) Time/Spoke to Admitting Phy: 15:[address] Rivers. She'll admit, agrees with empiric Zosyn and vancomycin until the repeat culture comes back. I also spoke with Dr. Reyez. He'll be down to see the patient. Impression Primary Impression: purulent cellulitis right foot Additional Impression: Failure of outpatient treatment Disposition: ADMITTED INPATIENT Condition: Stable Admissions Decision to Admit Reason: Admit from ER (General) Decision to Admit/Date: Feb 16, 2019 Time/Decision to Admit Time: 15:00 Departure-Patient Inst. Referrals: NO,LOCAL PHYSICIAN (PCP/Family) Primary Care Physician MARINA JACOBO APRN Feb 16, 2019 14:57
[2019-02-16] MEDS ORDERED: LACTATED RINGERS 1,000 ML IV SCH (15:00)
[2019-02-16] MEDS ORDERED: fentaNYL INJECTION 100 MCG/2 ML AMP IVP ONE (15:00)
[2019-02-16] MEDS ORDERED: LORazepam INJ 2 MG/ML (ATIVAN) VIAL IVP PRN (15:00)
[2019-02-16 15:13] LABS: INR 1.1 (0.8-1.4); PROTHROMBIN TIME PATIENT 14.3 SEC (12.2-14.7)
[2019-02-16] MEDS ORDERED: VANCOMYCIN INJECTION 1,250 MG in NS (IVPB) 250 ML IV SCH (15:15)
[2019-02-16] MEDS ORDERED: PIPERACILLIN/TAZOBACTAM (BULK) 4.5 GM in NS (IVPB) 100 ML IV ONE (15:15)
[2019-02-16] MEDS ORDERED: VANCOMYCIN INJECTION 1,250 MG in NS (IVPB) 250 ML IV ONE (15:15)
[2019-02-16 15:22] LABS: BILIRUBIN,TOTAL 0.5 MG/DL (0.1-1.0); CALCIUM 9.9 MG/DL (8.5-10.1); CREATININE SERUM 1.34 MG/DL (0.60-1.30); MAGNESIUM 2.1 MG/DL (1.8-2.4); POTASSIUM 4.2 MMOL/L (3.6-5.0); TOTAL PROTEIN 7.8 GM/DL (6.4-8.2)
[2019-02-16 15:44] LABS: BASOPHILS % (AUTO) 0 % (0-10); EOSINOPHILS # (AUTO) 0.2 10^3/uL (0.0-0.3); EOSINOPHILS % (AUTO) 1 % (0-10); HEMATOCRIT 42 % (40-54); HEMOGLOBIN 13.8 G/DL (13.3-17.7); LYMPHOCYTES # (AUTO) 1.4 X 10^3 (1.0-4.0); LYMPHOCYTES % (AUTO) 8 % (12-44); MEAN CORPUSCULAR HEMOGLOBIN 28 PG (25-34); MEAN CORPUSCULAR HGB CONC 33 G/DL (32-36); MEAN CORPUSCULAR VOLUME 85 FL (80-99); MEAN PLATELET VOLUME 10.4 FL (7.4-10.4); MONOCYTES # (AUTO) 1.3 X 10^3 (0.0-1.0); MONOCYTES % (AUTO) 7 % (0-12); NEUTROPHILS # (AUTO) 14.1 X 10^3 (1.8-7.8); NEUTROPHILS % (AUTO) 83 % (42-75); PLATELET COUNT 343 10^3/uL (130-400); RED CELL DISTRIBUTION WIDTH 13.1 % (10.0-14.5)
--- NOTE | 2019-02-16 15:46 | Diagnostic Imaging Report ---
INDICATION: Swelling and redness to the right foot as well as fever. TIME OF EXAM: 03:28 p.m. FINDINGS: Three views of the right foot were obtained. There is dorsal soft tissue swelling. The metatarsals are intact. Phalanges are intact. Mid foot and hind foot are unremarkable. No fractures are seen. IMPRESSION: Soft tissue swelling. No acute bony abnormality is detected. Dictated by: Dictated on workstation # [id number]
[2019-02-16] MEDS ORDERED: HOLD METFORMIN - RECEIVED CONTRAST 20 ML VIAL IV SCH (16:15)
[2019-02-16] MEDS ORDERED: NS 100 ML (IVPB) BAG IV ONE (16:15)
[2019-02-16] MEDS ORDERED: IOHEXOL 350 MG/ML 100 ML (OMNIPAQUE 350) VIAL IV ONE (16:15)
[2019-02-16 16:17] LABS: BAND NEUTROPHILS 2 %; BASOPHILS % (MANUAL) 0 %; EOSINOPHILS % (MANUAL) 1 %; LYMPHOCYTES % (MANUAL) 9 %; MONOCYTES % (MANUAL) 6 %; NEUTROPHILS % (MANUAL) 82 %; RBC MORPH NORMAL
[2019-02-16 16:20] VITALS: BP 115/82
[2019-02-16] MEDS: LACTATED RINGERS 1,000 ML IV SCH (16:36)
[2019-02-16] MEDS ORDERED: ACETAMINOPHEN 325 MG TABLET PO PRN (16:45)
[2019-02-16] MEDS ORDERED: LORazepam 0.5 MG (ATIVAN) TABLET PO PRN (16:45)
[2019-02-16] MEDS ORDERED: IBUPROFEN 600 MG (MOTRIN) TAB PO PRN (16:45)
[2019-02-16] MEDS ORDERED: CATHETER FLUSH 10 ML SYR IV PRN (17:00)
--- NOTE | 2019-02-16 17:02 | Diagnostic Imaging Report ---
EXAM: CT right ankle and foot with intravenous contrast. DATE: February 16, 2019. INDICATION: 43-year-old male, history of right foot abscess status post removal two weeks ago. Persistent right foot swelling and lack of healing. COMPARISON: Radiographs from February 16, 2019 and February 12, 2019. TECHNIQUE: Axial CT images at the level of the right foot and ankle were obtained following the intravenous administration of contrast. Coronal and sagittal reformats were obtained and provided. FINDINGS: At and above the level of the ankle, there is prominent nonspecific anterior, lateral and mild medial subcutaneous edema and fluid attenuation. There is no clearly identified well demarcated focal fluid collection at or above the level of the ankle. There is prominent nonspecific dorsal subcutaneous edema and fluid at the level of the foot. There is more ill-defined and more focal abnormal fluid attenuation within the volar subcutaneous tissues at the level of the first and second metatarsophalangeal joints with a proximal distal extent of approximately 4.6 cm, craniocaudal extent of 2.2 cm, and a transverse dimension of approximately 3.8 cm. There is no identified radiopaque foreign body. This area of focal abnormal fluid most likely relates to a phlegmon or early abscess. There is no particularly mature well-defined wall formation at the current time. There is no cortical or aggressive bone destruction. There is no periosteal reaction. There is no CT evidence to suggest osteomyelitis. There is minimal degenerative type enthesopathy at the Achilles tendon insertion. There is no tibiotalar or subtalar joint effusion. There is preservation of normal fat attenuation in the sinus tarsi. There is no acute fracture. IMPRESSION: 1. Focal area of ill-defined fluid attenuation within the volar soft tissues centered at the level of the first and second metatarsal phalangeal joints most compatible with a phlegmon or early abscess. There is no particularly mature well-defined wall formation at the current time. 2. No identified radiopaque foreign body. 3. No CT evidence of osteomyelitis. 4. Extensive nonspecific subcutaneous edema and fluid, as mentioned above. Dictated by: Dictated on workstation # [id number]
--- NOTE | 2019-02-16 18:10 | Consultation - Surgery ---
History of Present Illness History of Present Illness Patient Consulted On(chelsey/time) 02/16/19 18:05 Date Seen by Provider: Feb 16, 2019 Time Seen by Provider: 18:05 History of Present Illness Consult requested by Dr. Rivers forright foot abscess. Patient is a 43 year old male who states he thinks he stepped on a nail at work maybe about a week ago. He had developed an abscess on the right foot. He was seen at the ER on February 12 and had I and d performed and place on Bactrim. Patient now with worsening pain and increasing size and redness to the bottom of the right foot. Walking on it or touching the area makes worse. Has some slight drainage. Patient has some low grade fever he states. Nothing really making it better. Jaden n/v sweats chills shortness of breath or chest pain. Xrays of the foot show no foreign body. Allergies and Home Medications Allergies Coded Allergies: codeine (Verified Allergy, Unknown, 02/16/19) Patient Home Medication List Home Medication List Reviewed: Yes Past Imkdula-Kequhp-Zlzrno Hx Patient Social History Alcohol Use: Denies Use Recreational Drug Use: No 2nd Hand Smoke Exposure: No Recent Foreign Travel: No Contact w/Someone Who Travel: No Recent Infectious Disease Expo: No Recent Hopitalizations: No Physical Abuse Screen: No Sexual Abuse: No Immunizations Up To Date Tetanus Booster (TDap): Less than 5yrs Seasonal Allergies Seasonal Allergies: No Surgeries History of Surgeries: No Respiratory History of Respiratory Disorde: No Cardiovascular History of Cardiac Disorders: Yes Cardiac Disorders: Hypertension Neurological History of Neurological Disord: No Genitourinary History of Genitourinary Disor: No Gastrointestinal History of Gastrointestinal Di: No Musculoskeletal History of Musculoskeletal Dis: No Endocrine History of Endocrine Disorders: No HEENT History of HEENT Disorders: No Cancer History of Cancer: No Psychosocial History of Psychiatric Problem: No Integumentary History of Skin or Integumenta: No Blood Transfusions History of Blood Disorders: No Family Medical History Significant Family History: No Pertinent Family Hx Review of Systems-General Constitutional: see HPI EENTM: no symptoms reported Respiratory: no symptoms reported Cardiovascular: no symptoms reported Gastrointestinal: no symptoms reported Genitourinary: no symptoms reported Musculoskeletal: no symptoms reported Skin: see HPI Psychiatric/Neurological: No Symptoms Reported Physical Exam-General Problems Physical Exam Vital Signs Vital Signs - First Documented 02/16/19 14:43 Temp 100.1 Pulse 100 Resp 19 B/P (MAP) 129/115 (120) Pulse Ox 96 O2 Delivery Room Air Capillary Refill : Less Than 3 Seconds General Appearance: WD/WN, no apparent distress HEENT: PERRL/EOMI Neck: full range of motion, supple Respiratory: chest non-tender, no respiratory distress, no accessory muscle use Cardiovascular: regular rate, rhythm Gastrointestinal: non tender, soft, no organomegaly Back: no CVA tenderness Extremities: swelling (distal right foot), other (partially open wound plantar surface right foot with fluctance present under open wound and some purulent drainage surrounding erythema, pain with palpation) Neurologic/Psychiatric: no motor/sensory deficits, alert, normal mood/affect, oriented x 3 Skin: other (erythema around wound right foot) Lymphatic: no adenopathy Data Review Labs Laboratory Tests 02/16/19 14:42: Erythrocyte Sedimentation Rate 27H, Prothrombin Time 14.3, INR Comment 1.1, Sodium Level 140, Potassium Level 4.2, Chloride Level 103, Carbon Dioxide Level 27, Anion Gap 10, Blood Urea Nitrogen 14, Creatinine 1.34H, Estimat Glomerular Filtration Rate 58, BUN/Creatinine Ratio 10, Glucose Level 78, Lactic Acid Level 1.75, Calcium Level 9.9, Corrected Calcium 9.9, Magnesium Level 2.1, Total Bilirubin 0.5, Aspartate Amino Transf (AST/SGOT) 17, Alanine Aminotransferase (ALT/SGPT) 18, Alkaline Phosphatase 83, Total Protein 7.8, Albumin 4.0 02/16/19 14:50: White Blood Count 17.0H, Red Blood Count 4.95, Hemoglobin 13.8, Hematocrit 42, Mean Corpuscular Volume 85, Mean Corpuscular Hemoglobin 28, Mean Corpuscular Hemoglobin Concent 33, Red Cell Distribution Width 13.1, Platelet Count 343, Mean Platelet Volume 10.4, Neutrophils (%) (Auto) 83H, Lymphocytes (%) (Auto) 8L , Monocytes (%) (Auto) 7, Eosinophils (%) (Auto) 1, Basophils (%) (Auto) 0, Neutrophils # (Auto) 14.1H, Lymphocytes # (Auto) 1.4, Monocytes # (Auto) 1.3H, Eosinophils # (Auto) 0.2, Basophils # (Auto) 0.0, Neutrophils % (Manual) 82, Lymphocytes % (Manual) 9, Monocytes % (Manual) 6, Eosinophils % (Manual) 1, Basophils % (Manual) 0, Band Neutrophils 2, Blood Morphology Comment NORMAL Assessment/Plan Assessment/Plan Assessment/Plan right foot abscess/cellulitis-plantar surface recent history of stepping on nail NPO after midnight need incision and drainage of right foot abscess debridement and all other indicated procedures. he understands all risks and benefits and wishes to proceed IV abx Iv hydration TO or tomorrow am Clinical Quality Measures DVT/VTE Risk/Contraindication: Risk Factor Score Per Nursin RFS Level Per Nursing on Admit: 1=Low/No VTE PPX LINDA HULL DO Feb 16, 2019 18:10
[2019-02-16] MEDS ORDERED: HYDROcodone/APAP 5 MG/325 MG (LORTAB) TAB ONE (18:33)
[2019-02-16] MEDS: HYDROcodone/APAP 5 MG/325 MG (LORTAB) TAB PO PRN (18:50)
[2019-02-16 19:09] VITALS: BP 130/73
--- OUTSIDE RECORDS SUMMARY | 2019-02-16 21:45 | XMS REPORT | Continuity of Care Document ---
Author Organization Unknown Address Unknown Allergies There is no data. Medications There is no data. Problems There is no data. Procedures There is no data. Results There is no data. Encounters ACCT No. Visit Date/Time Discharge Status Pt. Type Provider Facility Loc./Unit Complaint [id number] 02/15/2019 11:30:00 [facility]
--- OUTSIDE RECORDS SUMMARY | 2019-02-16 21:47 | XMS REPORT | Continuity of Care Document ---
Author Organization Unknown Address Unknown Allergies There is no data. Medications There is no data. Problems There is no data. Procedures There is no data. Results There is no data. Encounters ACCT No. Visit Date/Time Discharge Status Pt. Type Provider Facility Loc./Unit Complaint [id number] 02/15/2019 11:30:00 [facility]
[2019-02-16] MEDS: PIPERACILLIN/TAZO 4.5 GM/NS 100 ML IV SCH ×2 (22:50)
[2019-02-16 23:54] VITALS: BP 123/74
[2019-02-17] VITALS (15 sets, daily range): BP systolic 110–139; BP diastolic 62–100
[2019-02-17] MEDS: LACTATED RINGERS 1,000 ML IV SCH ×4 (01:32→21:03)
[2019-02-17] MEDS: HYDROcodone/APAP 5 MG/325 MG (LORTAB) TAB PO PRN ×3 (03:14→21:04)
[2019-02-17] MEDS: VANCOMYCIN 1 GM/NS 250 ML IVPB IV SCH ×4 (06:16→17:24)
[2019-02-17 06:23] LABS: BASOPHILS % (AUTO) 0 % (0-10); EOSINOPHILS # (AUTO) 0.4 10^3/uL (0.0-0.3); EOSINOPHILS % (AUTO) 4 % (0-10); HEMATOCRIT 37 % (40-54); HEMOGLOBIN 12.1 G/DL (13.3-17.7); LYMPHOCYTES # (AUTO) 2.2 X 10^3 (1.0-4.0); LYMPHOCYTES % (AUTO) 20 % (12-44); MEAN CORPUSCULAR HEMOGLOBIN 28 PG (25-34); MEAN CORPUSCULAR HGB CONC 33 G/DL (32-36); MEAN CORPUSCULAR VOLUME 86 FL (80-99); MEAN PLATELET VOLUME 9.8 FL (7.4-10.4); MONOCYTES % (AUTO) 9 % (0-12); NEUTROPHILS # (AUTO) 7.7 X 10^3 (1.8-7.8); NEUTROPHILS % (AUTO) 68 % (42-75); PLATELET COUNT 292 10^3/uL (130-400); RED CELL DISTRIBUTION WIDTH 12.8 % (10.0-14.5); WHITE BLOOD COUNT 11.4 10^3/uL (4.3-11.0)
[2019-02-17 06:43] LABS: ALANINE AMINOTRANSFERASE 13 U/L (0-55); ALBUMIN 3.3 GM/DL (3.2-4.5); ALKALINE PHOSPHATASE 66 U/L (40-136); BILIRUBIN,TOTAL 0.4 MG/DL (0.1-1.0); BUN/CREATININE RATIO 11; CALCIUM 9.1 MG/DL (8.5-10.1); CARBON DIOXIDE 26 MMOL/L (21-32); CHLORIDE 103 MMOL/L (98-107); GFR ESTIMATED > 60; GLUCOSE 94 MG/DL (70-105); SODIUM 138 MMOL/L (135-145); TOTAL PROTEIN 6.6 GM/DL (6.4-8.2)
[2019-02-17] MEDS: PIPERACILLIN/TAZO 4.5 GM/NS 100 ML IV SCH ×6 (07:00→21:04)
[2019-02-17] MEDS: DOCUSATE SODIUM 100 MG (COLACE) CAP PO SCH (08:13)
[2019-02-17] MEDS ORDERED: fentaNYL INJECTION 100 MCG/2 ML AMP ONE (08:34)
[2019-02-17] MEDS ORDERED: MIDAZOLAM 2 MG/2 ML (VERSED) VIAL ONE (08:35)
--- NOTE | 2019-02-17 08:55 | Progress Note-Pre Operative ---
Pre-Operative Progress Note H&P Reviewed The H&P was reviewed, patient examined and no changes noted. Date Seen by Provider: Feb 17, 2019 Time Seen by Provider: 08:55 Date H&P Reviewed: Feb 17, 2019 Time H&P Reviewed: 08:55 Pre-Operative Diagnosis: right foot abscess/cellulitis LINDA HULL DO Feb 17, 2019 08:55
[2019-02-17] MEDS ORDERED: proPOfol 200 MG/20 ML (DIPRIVAN) VIAL IV ONE (08:57)
[2019-02-17] MEDS ORDERED: LIDOCAINE PF 2% 5 ML (XYLOCAINE) VIAL ONE (08:57)
[2019-02-17] MEDS ORDERED: SEVOFLURANE (ULTANE) 15 ML INHAL SOLN ONE (08:57)
[2019-02-17] MEDS ORDERED: ONDANSETRON 4 MG/2 ML (SDV) Z0FRAN ONE (08:57)
--- NOTE | 2019-02-17 09:42 | Progress Note-Post Operative ---
Post-Operative Progess Note Surgeon (s)/Administrative Library Assistant (s) Surgeon LINDA HULL DO Administrative Library Assistant: na Pre-Operative Diagnosis right foot abscess/cellulitis Post-Operative Diagnosis right foot abscess, necrotic skin, skin, subctuaneous fat and muscle Procedure & Operative Findings Date of Procedure 02/17/19 Procedure Performed/Findings incision and drainage, sharp and cautery debridement of necrotic skin, subcutaneous fat and muscle 2.5x4.5x1.5 cm Anesthesia Type gen Estimated Blood Loss Estimated blood loss (mL): min Specimens/Packing Specimens Removed culture LINDA HULL DO Feb 17, 2019 09:42
[2019-02-17] MEDS ORDERED: MEPERIDINE (DEMEROL) INJ 50 MG/ML IVP ONE (09:45)
[2019-02-17] MEDS ORDERED: ONDANSETRON 4 MG/2 ML (SDV) Z0FRAN IVP PRN (09:45)
[2019-02-17] MEDS ORDERED: fentaNYL INJECTION 100 MCG/2 ML AMP IVP ONE (09:45)
--- NOTE | 2019-02-17 13:39 | History & Physical-Hospitalist ---
History of Present Illness HPI/Chief Complaint this is a 43-year-old white male who was admitted with an abscess of the right foot secondary to MRSA failing outpatient treatment. Dr. Reyez had taken him to surgery this morning with debridement of the abscess. The patient has no current complain Source: patient Exam Limitations: no limitations Date Seen 02/17/19 Time Seen by a Provider: 12:30 Attending Physician Veena Rivers MD PCP No,Local Physician Referring Physician Date of Admission Feb 16, 2019 at 15:04 Home Medications & Allergies Home Medications Reviewed patient Home Medication Reconciliation performed by pharmacy medication reconciliations microbiology lab technician and/or nursing. Patients Allergies have been reviewed. Allergies Allergies Coded Allergies codeine (Verified Allergy, Unknown, 02/16/19) Past Zasxwyt-Ykcdcb-Cqddtr Hx Past Med/Social Hx: Reviewed Nursing Past Med/Soc Hx Patient Social History Marrital Status: Employed/Student: employed Alcohol Use: Denies Use Recreational Drug Use: No 2nd Hand Smoke Exposure: No Physical Abuse Screen: No Sexual Abuse: No Recent Foreign Travel: No Contact w/other who traveled: No Recent Hopitalizations: No Recent Infectious Disease Expo: No Immunizations Up To Date Tetanus Booster (TDap): Less than 5yrs Seasonal Allergies Seasonal Allergies: No Past Medical History Currently Using CPAP: No Currently Using BIPAP: No Cardiac: Hypertension History of Blood Disorders: No Family History Reviewed Nursing Family Hx No Pertinent Family Hx, Diabetes Review of Systems Constitutional: no symptoms reported Musculoskeletal: other (right foot pain) Physical Exam Physical Exam Vital Signs Vital Signs - First Documented 02/16/19 14:43 Temp 100.1 Pulse 100 Resp 19 B/P (MAP) 129/115 (120) Pulse Ox 96 O2 Delivery Room Air Capillary Refill : Less Than 3 SecondsLess Than 3 Seconds Height, Weight, BMI Height: 5'10.00" Weight: 186lbs. 5.0oz. 84.293262ar; 26.7 BMI Method:Stated General Appearance: No Apparent Distress, WD/WN HEENT: PERRL/EOMI, TMs Normal, Normal ENT Inspection, Pharynx Normal, Other Neck: Full Range of Motion (poor dentition), Normal Inspection, Non Tender, Supple Respiratory: Chest Non Tender, Lungs Clear, Normal Breath Sounds, No Accessory Muscle Use, No Respiratory Distress Cardiovascular: Regular Rate, Rhythm, No Gallop, No JVD, No Murmur, Normal Pe ripheral Pulses Gastrointestinal: Normal Bowel Sounds, No Organomegaly, Soft Rectal: Deferred Back: Normal Inspection, No CVA Tenderness, No Vertebral Tenderness Extremity: Other (right foot wrapped with erythema above the wrapping and s) Neurologic/Psychiatric: Alert, Oriented x3, No Motor/Sensory Deficits, Normal Mood/Affect Skin: Normal Color, Warm/Dry Lymphatic: No Adenopathy Results Results/Procedures Labs Laboratory Tests 02/16/19 14:42 02/16/19 14:50 02/17/19 06:14 Patient resulted labs reviewed. Imaging: Reviewed Imaging Report Assessment/Plan Admission Diagnosis abscess with MRSA failed outpatient treatment status post debridement on Vanc and Zosyn till cultures available Appreciate Dr. Reyez's help will require IV antibiotics for at least 2 overnight stays Admission Status: Inpatient Order (span 2 midnights) Reason for Inpatient Admission: IV antibiotic Diagnosis/Problems Diagnosis/Problems (1) Abscess of right foot excluding toes Status: Acute (2) Failure of outpatient treatment Status: Acute Clinical Quality Measures DVT/VTE Risk/Contraindication: Risk Factor Score Per Nursin RFS Level Per Nursing on Admit: 1=Low/No VTE PPX VEENA RIVERS MD Feb 17, 2019 13:39
[2019-02-18 00:57] VITALS: BP 133/72
[2019-02-18] MEDS: LACTATED RINGERS 1,000 ML IV SCH ×2 (02:05→08:55)
[2019-02-18 04:00] VITALS: BP 132/76
[2019-02-18] MEDS ORDERED: TROUGH ORDER-PHARMACY XX NR (04:00)
[2019-02-18] MEDS: VANCOMYCIN 1 GM/NS 250 ML IVPB IV SCH ×2 (05:21)
[2019-02-18] MEDS: HYDROcodone/APAP 5 MG/325 MG (LORTAB) TAB PO PRN ×3 (05:29→20:25)
[2019-02-18] MEDS: PIPERACILLIN/TAZO 4.5 GM/NS 100 ML IV SCH ×6 (06:34→21:41)
[2019-02-18 08:00] VITALS: BP 114/65
[2019-02-18] MEDS: DOCUSATE SODIUM 100 MG (COLACE) CAP PO SCH (08:18)
--- NOTE | 2019-02-18 09:03 | Anesthesia-General Post-Op ---
General Patient Condition Mental Status/LOC: Same as Preop Cardiovascular: Satisfactory Nausea/Vomiting: Absent Respiratory: Satisfactory Pain: Controlled Complications: Absent Post Op Complications Complications None Follow Up Care/Instructions Patient Instructions None needed. Anesthesia/Patient Condition Patient Condition Patient is doing well, no complaints, stable vital signs, no apparent adverse anesthesia problems. No complications reported per nursing. APRIL MENDOZA CRNA Feb 18, 2019 09:03
[2019-02-18] MEDS ORDERED: VANCOMYCIN 500 MG/NS 100 ML IV NR ×2 (11:13)
[2019-02-18 12:00] VITALS: BP 132/76
--- NOTE | 2019-02-18 12:50 | Progress Note - Hospitalist ---
Subjective HPI/CC On Admission Date Seen by Provider: Feb 18, 2019 Time Seen by Provider: 12:30 this is a 43-year-old white male who was admitted with an abscess of the right foot secondary to MRSA failing outpatient treatment. Dr. Reyez had taken him to surgery this morning with debridement of the abscess. The patient has no current complain Subjective/Events-last exam patient is without complaint other than how long he needs to stay. He has concerns about returning to work. His pain is controllable. Review of Systems Musculoskeletal: foot pain Focused Exam Lactate Level 02/16/19 14:42: Lactic Acid Level 1.75 Objective Exam Vital Signs Vital Signs Date Time Temp Pulse Resp B/P (MAP) Pulse Ox O2 Delivery O2 Flow Rate FiO2 02/18/19 12:00 99.0 66 18 132/76 (94) 97 Room Air 02/18/19 08:00 2.00 Capillary Refill : Less Than 3 SecondsLess Than 3 Seconds General Appearance: No Apparent Distress, WD/WN HEENT: PERRL/EOMI, TMs Normal, Normal ENT Inspection, Pharynx Normal, Other Neck: Full Range of Motion (poor dentition), Normal Inspection, Non Tender, Supple Respiratory: Chest Non Tender, Lungs Clear, Normal Breath Sounds, No Accessory Muscle Use, No Respiratory Distress Cardiovascular: Regular Rate, Rhythm, No Gallop, No JVD, No Murmur, Normal Peripheral Pulses Gastrointestinal: Normal Bowel Sounds, No Organomegaly, Soft Rectal: Deferred Back: Normal Inspection, No CVA Tenderness, No Vertebral Tenderness Extremity: Other (right foot wrapped with erythema above the wrapping and s) Neurologic/Psychiatric: Alert, Oriented x3, No Motor/Sensory Deficits, Normal Mood/Affect Skin: Normal Color, Warm/Dry Lymphatic: No Adenopathy Results/Procedures Lab Patient resulted labs reviewed. Imaging: Reviewed Imaging Report Assessment/Plan Assessment and Plan Assess & Plan/Chief Complaint abscess with MRSA failed outpatient treatment status post debridement cultures reveal MRSA-will YUVAL Clark Difficult social situation consult high school social studies teacher in a.m. may be able to follow patient closely as an outpatient Appreciate Dr. Reyez's help Diagnosis/Problems Diagnosis/Problems (1) Abscess of right foot excluding toes Status: Acute (2) Failure of outpatient treatment Status: Acute Clinical Quality Measures DVT/VTE Risk/Contraindication: Risk Factor Score Per Nursin RFS Level Per Nursing on Admit: 1=Low/No VTE PPX MOHINDER GILLIAM MD Feb 18, 2019 12:50
[2019-02-18 16:00] VITALS: BP 136/76
--- NOTE | 2019-02-18 17:23 | Progress Note - Surgery ---
Subjective Date Seen by a Provider: Feb 18, 2019 Time Seen by a Provider: 05:36 Subjective/Events-last exam patient lying in bed. Patient states pain is controlled. No new complaints. Dressing intact. Denies any nausea vomiting fever sweats chills shortness of breath or chest pain.on vancomycin and Zosyn. Focused Exam Lactate Level 02/16/19 14:42: Lactic Acid Level 1.75 Objective Exam Vital Signs Date Time Temp Pulse Resp B/P (MAP) Pulse Ox O2 Delivery O2 Flow Rate FiO2 02/18/19 16:00 98.5 66 18 136/76 (96) 96 Room Air 02/18/19 12:00 99.0 66 18 132/76 (94) 97 Room Air 02/18/19 08:00 Room Air 02/18/19 08:00 98.1 55 18 114/65 (81) 97 Nasal Cannula 2.00 02/18/19 04:00 99.0 56 18 132/76 (94) 97 Nasal Cannula 2.00 02/18/19 00:57 98.5 82 18 133/72 (92) 94 Nasal Cannula 2.00 02/17/19 20:04 72 18 138/80 (99) 94 Nasal Cannula 2.00 I & O 02/18/19 07:00 Intake Total 3540 ml Output Total 3925 ml Balance -385 ml Capillary Refill : Less Than 3 SecondsLess Than 3 Seconds General Appearance: No Apparent Distress, WD/WN HEENT: PERRL/EOMI, TMs Normal, Normal ENT Inspection, Pharynx Normal, Other (poor dentition) Neck: Full Range of Motion, Normal Inspection, Non Tender, Supple Respiratory: Chest Non Tender, No Accessory Muscle Use, No Respiratory Distress Cardiovascular: Regular Rate, Rhythm Gastrointestinal: non tender, soft, no organomegaly Extremity: Other (right foot wound clean no purulent drainage surrounding erythema) Neurologic/Psychiatric: Alert, Oriented x3, No Motor/Sensory Deficits, Normal Mood/Affect Skin: Normal Color, Warm/Dry, Other (erythema right foot) Lymphatic: No Adenopathy Results Lab Laboratory Tests 02/18/19 04:01: Vancomycin Level Trough 6.9L Microbiology 02/16/19 Blood Culture - Preliminary, Resulted No growth 02/16/19 MRSA Screen - Final, Complete MRSA not isolated 02/17/19 Gram Stain - Final, Resulted 02/17/19 Anaerobic Culture, Resulted Pending 02/17/19 Surgical Culture - Preliminary, Resulted Staphylococcus aureus Assessment/Plan Assessment/Plan Assessment/Plan right foot abscess/cellulitis-plantar surface recent history of stepping on nail wound care daily Continue IV antibiotics Continue to monitor. Repeat labs in a.m. Clinical Quality Measures DVT/VTE Risk/Contraindication: Risk Factor Score Per Nursin RFS Level Per Nursing on Admit: 1=Low/No VTE PPX LINDA HULL DO Feb 18, 2019 17:23
[2019-02-18] MEDS: VANCOMYCIN INJECTION 1,500 MG in NS IV 500 ML 500 ML IV SCH (17:26)
[2019-02-18 20:00] VITALS: BP 154/73
[2019-02-19] VITALS: BP 133/84
[2019-02-19] MEDS: HYDROcodone/APAP 5 MG/325 MG (LORTAB) TAB PO PRN ×4 (01:32→14:26)
[2019-02-19 04:30] VITALS: BP 129/81
[2019-02-19 05:47] LABS: HEMOGLOBIN 12.5 G/DL (13.3-17.7); MEAN PLATELET VOLUME 9.8 FL (7.4-10.4); RED CELL DISTRIBUTION WIDTH 12.5 % (10.0-14.5); WHITE BLOOD COUNT 7.4 10^3/uL (4.3-11.0)
[2019-02-19 06:11] LABS: BUN/CREATININE RATIO 12; CALCIUM 9.7 MG/DL (8.5-10.1); CARBON DIOXIDE 29 MMOL/L (21-32); CHLORIDE 101 MMOL/L (98-107); GFR ESTIMATED > 60; GLUCOSE 87 MG/DL (70-105); POTASSIUM 5.6 MMOL/L (3.6-5.0); SODIUM 140 MMOL/L (135-145)
[2019-02-19] MEDS: VANCOMYCIN INJECTION 1,500 MG in NS IV 500 ML 500 ML IV SCH (06:34)
[2019-02-19 08:00] VITALS: BP 132/79
[2019-02-19] MEDS: DOCUSATE SODIUM 100 MG (COLACE) CAP PO SCH (08:49)
[2019-02-19] MEDS: PIPERACILLIN/TAZO 4.5 GM/NS 100 ML IV SCH ×2 (08:49)
[2019-02-19] MEDS ORDERED: SULF-222 PO (09:20)
[2019-02-19 12:00] VITALS: BP 126/79
--- NOTE | 2019-02-19 13:52 | Progress Note - Hospitalist ---
Subjective HPI/CC On Admission Date Seen by Provider: Feb 19, 2019 Time Seen by Provider: 13:47 this is a 43-year-old white male who was admitted with an abscess of the right foot secondary to MRSA failing outpatient treatment. Dr. Reyez had taken him to surgery this morning with debridement of the abscess. The patient has no cu rrent complain Subjective/Events-last exam Pt has no complaints. States pain is well controlled. Focused Exam Lactate Level 02/16/19 14:42: Lactic Acid Level 1.75 Objective Exam Vital Signs Vital Signs Date Time Temp Pulse Resp B/P (MAP) Pulse Ox O2 Delivery O2 Flow Rate FiO2 02/19/19 12:00 98.8 59 16 126/79 (95) 93 Room Air 02/18/19 08:00 2.00 Capillary Refill : Less Than 3 SecondsLess Than 3 Seconds General Appearance: No Apparent Distress, WD/WN HEENT: Other (poor dentition) Respiratory: No Accessory Muscle Use, No Respiratory Distress Extremity: Other (right foot dressed with clean and dry gauze) Neurologic/Psychiatric: Alert, Oriented x3 Skin: Normal Color, Warm/Dry, Other (erythema right foot) Results/Procedures Lab Laboratory Tests 02/19/19 05:10 02/19/19 05:15 Patient resulted labs reviewed. 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
[2019-02-19 16:00] VITALS: BP 141/78
[2019-02-19] MEDS ORDERED: TROUGH ORDER-PHARMACY XX ONE (17:00)
[2019-02-19] MEDS: VANCOMYCIN 1,750 MG/NS 500 ML IVPB IV SCH ×2 (19:35)
[2019-02-19 20:00] VITALS: BP 146/80
--- NOTE | 2019-02-19 20:03 | Progress Note - Surgery ---
Subjective Date Seen by a Provider: Feb 19, 2019 Time Seen by a Provider: 14:30 Subjective/Events-last exam patient doing well. Pain mostly controlled. Patient states that erythema is better. No new complaints. Denies any nausea vomiting fever sweats chills shortness breath or chest pain. Objective Exam Vital Signs Date Time Temp Pulse Resp B/P (MAP) Pulse Ox O2 Delivery O2 Flow Rate FiO2 02/19/19 16:00 98.9 70 18 141/78 (99) 94 Room Air 02/19/19 12:00 98.8 59 16 126/79 (95) 93 Room Air 02/19/19 08:00 98.7 60 16 132/79 (96) 94 Room Air 02/19/19 08:00 Room Air 02/19/19 04:30 97.8 56 19 129/81 (97) 94 Room Air 02/19/19 00:00 98.5 81 18 133/84 (100) 92 Room Air I & O 02/19/19 07:00 Intake Total 5955 ml Output Total 6325 ml Balance -370 ml Capillary Refill : Less Than 3 SecondsLess Than 3 Seconds General Appearance: No Apparent Distress, WD/WN HEENT: Other (poor dentition) Neck: Normal Inspection, Supple Respiratory: Chest Non Tender, No Accessory Muscle Use, No Respiratory Distress Cardiovascular: Regular Rate, Rhythm Gastrointestinal: non tender, soft, no organomegaly Extremity: Other (right foot wound no significant drainage appears clean) Neurologic/Psychiatric: Alert, Oriented x3 Skin: Normal Color, Warm/Dry, Other (No significant erythema right foot) Results Lab Laboratory Tests 02/19/19 05:10: White Blood Count 7.4, Red Blood Count 4.46, Hemoglobin 12.5L, Hematocrit 39L, Mean Corpuscular Volume 86, Mean Corpuscular Hemoglobin 28, Mean Corpuscular Hemoglobin Concent 33, Red Cell Distribution Width 12.5, Platelet Count 344, Mean Platelet Volume 9.8 02/19/19 05:15: Sodium Level 140, Potassium Level 5.6H, Chloride Level 101, Carbon Dioxide Level 29, Anion Gap 10, Blood Urea Nitrogen 14, Creatinine 1.20, Estimat Glomerular Filtration Rate > 60, BUN/Creatinine Ratio 12, Glucose Level 87, Calcium Level 9.7 02/19/19 17:46: Vancomycin Level Trough 13.2 Microbiology 02/16/19 Blood Culture - Preliminary, Resulted No growth 02/16/19 MRSA Screen - Final, Complete MRSA not isolated 02/17/19 Gram Stain - Final, Resulted 02/17/19 Anaerobic Culture - Preliminary, Resulted No anaerobes isolated 02/17/19 Surgical Culture - Preliminary, Resulted Staphylococcus aureus Assessment/Plan Assessment/Plan Assessment/Plan right foot abscess/cellulitis-plantar surface recent history of stepping on nail wound care daily Continue IV antibiotics Continue to monitor. pain control Likely home tomorrow. Clinical Quality Measures DVT/VTE Risk/Contraindication: Risk Factor Score Per Nursin RFS Level Per Nursing on Admit: 4+=Very High LINDA HULL DO Feb 19, 2019 20:03
[2019-02-20 00:17] VITALS: BP 141/78
[2019-02-20] MEDS: HYDROcodone/APAP 5 MG/325 MG (LORTAB) TAB PO PRN ×2 (01:04→12:49)
[2019-02-20 04:00] VITALS: BP 140/74
[2019-02-20 05:57] LABS: BASOPHILS % (AUTO) 0 % (0-10); EOSINOPHILS # (AUTO) 0.5 10^3/uL (0.0-0.3); EOSINOPHILS % (AUTO) 6 % (0-10); HEMATOCRIT 40 % (40-54); LYMPHOCYTES # (AUTO) 2.7 X 10^3 (1.0-4.0); LYMPHOCYTES % (AUTO) 36 % (12-44); MEAN CORPUSCULAR HEMOGLOBIN 28 PG (25-34); MEAN CORPUSCULAR HGB CONC 33 G/DL (32-36); MEAN CORPUSCULAR VOLUME 85 FL (80-99); MEAN PLATELET VOLUME 9.1 FL (7.4-10.4); MONOCYTES # (AUTO) 0.8 X 10^3 (0.0-1.0); MONOCYTES % (AUTO) 11 % (0-12); NEUTROPHILS # (AUTO) 3.5 X 10^3 (1.8-7.8); NEUTROPHILS % (AUTO) 47 % (42-75); PLATELET COUNT 400 10^3/uL (130-400); RED CELL DISTRIBUTION WIDTH 12.7 % (10.0-14.5); WHITE BLOOD COUNT 7.4 10^3/uL (4.3-11.0)
[2019-02-20] MEDS: VANCOMYCIN 1,750 MG/NS 500 ML IVPB IV SCH ×2 (06:19)
[2019-02-20 06:22] LABS: BUN/CREATININE RATIO 13; CALCIUM 9.5 MG/DL (8.5-10.1); CARBON DIOXIDE 30 MMOL/L (21-32); CHLORIDE 100 MMOL/L (98-107); CREATININE SERUM 1.18 MG/DL (0.60-1.30); GFR ESTIMATED > 60; GLUCOSE 90 MG/DL (70-105); POTASSIUM 4.1 MMOL/L (3.6-5.0); SODIUM 139 MMOL/L (135-145)
[2019-02-20 08:00] VITALS: BP 123/82
[2019-02-20] MEDS: DOCUSATE SODIUM 100 MG (COLACE) CAP PO SCH (09:51)
[2019-02-20] MEDS ORDERED: ACHD5005 PO (10:06)
[2019-02-20] MEDS ORDERED: CLIN300C11 PO (10:06)
[2019-02-20] MEDS ORDERED: LACT1CAP62 PO (10:06)
--- NOTE | 2019-02-20 10:06 | Discharge Summary ---
Diagnosis/Chief Complaint Date of Admission Feb 16, 2019 at 15:04 Date of Discharge Admission Diagnosis abscess with MRSA failed outpatient treatment status post debridement on Vanc and Zosyn till cultures available Appreciate Dr. Reyez's help will require IV antibiotics for at least 2 overnight stays Discharge Diagnosis (1) Abscess of right foot excluding toes Status: Acute Assessment & Plan: s/p debridement by Dr Reyez DC zosyn, continue Vanc for MRSA Marketing Sales Representative consulted Discharge Summary Procedures/Consulations Surgery- Dr Reyez Discharge Physical Exam Allergies: Coded Allergies: codeine (Verified Allergy, Unknown, 02/16/19) Vitals & I&Os Vital Signs Date Time Temp Pulse Resp B/P (MAP) Pulse Ox O2 Delivery O2 Flow Rate FiO2 02/20/19 14:37 57 18 146/78 96 Room Air 2.00 02/20/19 12:00 98.7 General Appearance: No Apparent Distress, WD/WN Neurologic/Psychiatric: Alert, Oriented x3 Hospital Course Pt was admitted for an abscess after failing outpatient management. He underwent surgical debridement and was treated with Vanc/Zosyn. His cultures revealed MRSA and abx were deescalated to Vancomycin only. He was discharged home on Clindmycin to complete oral course of antibiotics. He is to take a probiotic to help prevent antibiotic associated diarrhea. Labs (last 24 hrs) Microbiology 02/16/19 Blood Culture - Preliminary, Resulted No growth 02/16/19 MRSA Screen - Final, Complete MRSA not isolated 02/17/19 Gram Stain - Final, Complete 02/17/19 Anaerobic Culture - Final, Complete No anaerobes isolated 02/17/19 Surgical Culture - Final, Complete Staphylococcus aureus Patient resulted labs reviewed. Pending Labs Imaging: Reviewed Imaging Report Discussion & Recommendations Discharge Planning: >30 minutes discharge planning Discharge Home Medications: Active Scripts Active Clindamycin HCl 300 Mg Capsule 300 Mg PO BID Probiotic (Lactobacillus Acidophilus) 1 Each Capsule 1 Each PO TID Hydrocodone/Acetaminophen 5/325mg Tablet (Acetaminophen/Hydrocodone Bitart) 1 Tab Tab 1 Tab PO Q4H PRN Instructions to patient/family Please see electronic discharge instructions given to patient. Clinical Quality Measures DVT/VTE Risk/Contraindication: Risk Factor Score Per Nursin RFS Level Per Nursing on Admit: 4+=Very High CHARLOTTE GIPSON MD Feb 20, 2019 10:06
--- NOTE | 2019-02-20 10:10 | Discharge Inst-Simple/Standard ---
Discharge Inst-Standard Patient Instructions/Follow Up Plan of Care/Instructions/FU: Please continue to take your medications as written. Please establish care with a PCP to follow up this hospital stay and please follow up with Dr Reyez regarding your surgical wound. Activity as Tolerated: Yes Discharge Diet: No Restrictions Return to The Hospital For: Fever, worsening pain/drainage/redness, confusion, if you feel you are getting worse. CHARLOTTE GIPSON MD Feb 20, 2019 10:10
[2019-02-20 12:00] VITALS: BP 146/78
[2019-02-20] MEDS ORDERED: LACTOBACILLUS ACIDOPHILUS (PROBIOTIC) CAPSULE PO SCH (12:00)
[2019-02-20 14:37] VITALS: BP 146/78
[2019-02-21] MEDS ORDERED: TROUGH ORDER-PHARMACY XX NR (06:00)
--- NOTE | 2019-02-23 12:19 | OPERATIVE REPORT ---
DATE OF SERVICE: 02/17/2019 PREOPERATIVE DIAGNOSIS: Right foot abscess/cellulitis. POSTOPERATIVE DIAGNOSIS: Right foot abscess, necrotic skin, subcutaneous fat and muscle. PROCEDURE: Incision and drainage and sharp and cautery debridement of necrotic skin, subcutaneous fat and muscle, overall dimensions 2.5 x 4.5 x 1.5 cm. SURGEON: Linda Reyez DO. ANESTHESIA: General. ESTIMATED BLOOD LOSS: Minimal. COMPLICATIONS: None. INDICATIONS: The patient is a 43-year-old male with recently stepping on a nail he reports. Had previous incision and drainage and was started on antibiotics, but question if he was taking these due to cost. The patient returned to the Emergency Department due to worsening symptoms. He understands risks and benefits of procedure, and wished to proceed with procedure. Consent was signed and on the chart. DESCRIPTION OF PROCEDURE: The patient was taken to the operating suite. His right foot was prepped and draped in sterile fashion. Timeout was performed. The 15 blade scalpel was used to make an incision over the area of fluctuance. Some brown material erupted, culture was obtained. A finger was placed within the incision and lots of loculations, and there is some necrotic subcutaneous fat and some necrotic appearing muscle. Sharp and cautery debridement was performed removing all of the necrotic-appearing tissue. Overall, dimensions as mentioned above. Pulse manager behavior was then used to irrigate the wound with 3 liters of fluid. The foot appears healthy and clean within the wound at this time. The wound was then packed with half inch iodoform gauze and then sterile bandage was applied, after the foot was washed and dried. The patient tolerated procedure well without any complications and taken to recovery room in stable condition. Job ID: [id number] DocumentID: [id number] Dictated Date: 02/17/2019 09:42:33 Grubber Date: 02/17/2019 10:30:52 Dictated By: LINDA REYEZ DO
== END 2019-02-20 14:40 | disposition home or self-care (01) | DRG 580 ==
LOC: EDUNIT# 14:21 → ER 14:22 → 4TH 15:04
PROVIDERS: ADMIT Internal Medicine; ATTEND Internal Medicine
PROC: 0KBV0ZZ Excision of Right Foot Muscle, Open Approach (ICD-10-PCS; principal; 2019-02-17 08:52)
DX: L02.611 Cutaneous abscess of right foot (principal); L03.115 Cellulitis of right lower limb; I96 Gangrene, not elsewhere classified; I10 Essential (primary) hypertension; W45.0XXA Nail entering through skin, initial encounter; Y92.63 Factory as the place of occurrence of the external cause; B95.62 Methicillin resistant Staphylococcus aureus infection as the cause of diseases classified elsewhere
CPT/HCPCS: 36415; 73630; 73701; 80048; 80053; 80202; 83605; 83735; 85007; 85025; 85027; 85610; 85652; 87040; 87070; 87075; 87077; 87081; 87186; 87205; 96361; 96365; 96375